=== PATIENT | female | born 1980 | race Caucasian/White ===

== ENCOUNTER 2017-10-24 20:00 | Outpatient (CLI) | payer OTHER ==
[2017-10-25] MEDS: raNITIdine SYRUP 150 MG/10 ML UDC PO (08:48)
[2017-10-25] MEDS: BETAMETHASONE SOLUSPAN 6MG/ML INJ 5ML (J0702) IM (11:20)
[2017-10-25] MEDS ORDERED: BETAMETHASONE SOLUSPAN 6MG/ML INJ 5ML (J0702) IM (15:50)
== END 2017-10-25 13:06 | disposition home or self-care (01) ==
LOC: M LDO 20:00
DX: O47.03 False labor before 37 completed weeks of gestation, third trimester (principal); Z3A.34 34 weeks gestation of pregnancy; O99.513 Diseases of the respiratory system complicating pregnancy, third trimester; J45.909 Unspecified asthma, uncomplicated; Z88.0 Allergy status to penicillin; Z79.899 Other long term (current) drug therapy
CPT/HCPCS: J0702